=== PATIENT | male | born 2000 | race Caucasian/White ===

== ENCOUNTER 2023-01-08 00:45 | Emergency (ER) | payer MEDICAID ==
[~2023-01-08] VITALS: Ht 162.6 cm; Wt 63.5 kg
[2023-01-08 01:10] VITALS: BP 123/82; PULSE 65; RESP 16; TEMP 98; O2SAT 98
--- NOTE | 2023-01-08 01:13 | NUR ---
to lobby a/w bed ambulatory
--- NOTE | 2023-01-08 04:08 | NUR ---
PATIENT LEFT WITHOUT BEING SEEN BY DR. HUANG. NO FURTHER CARE PROVIDED FOR PATIENT.
== END 2023-01-08 04:08 | disposition left against medical advice (07) ==
LOC: MED 00:45
DX: K08.89 Other specified disorders of teeth and supporting structures (principal); Z53.21 Procedure and treatment not carried out due to patient leaving prior to being seen by health care provider
CPT/HCPCS: 99281